=== PATIENT | male | born 1955 | race Caucasian/White ===

== ENCOUNTER 2021-04-09 11:54 | Inpatient (IN) | payer OTHER, SELFPAY ==
[2021-04-09] VITALS (12 sets, daily range): BP systolic 161–191; BP diastolic 79–88; PULSE 68–85; RESP 13–21; TEMP 36.6–37.5; O2SAT 95–99; BMI 34.9
--- NOTE | 2021-04-09 12:33 | DI.RAD.S_ITS ---
PROCEDURE: XR CHEST 1V INDICATIONS: suspected sepsis TECHNIQUE: One view of the chest was acquired. COMPARISON: [facility], CR, XR FOOT LT MIN 3V, 04/09/2021, 12:53. [facility], CR, XR CHEST 1 VIEW, 01/20/2021, 18:29. FINDINGS: Surgical changes and devices: None. Lungs and pleura: Lungs are clear. No pleural effusions or pneumothorax. Mediastinum: Mediastinal contours appear normal. Heart size is normal. Bones and chest wall: No suspicious bony lesions. Overlying soft tissues appear unremarkable. IMPRESSION: Portable chest within normal limits. No focal infiltrates are seen. If there is clinical concern for a developing pulmonary process, a short-term followup chest series (with PA and lateral views, performed in deep inspiration) is suggested for further evaluation. Dictated by: Giorgio Coy M.D. on 04/09/2021 at 12:21 Approved by: Giorgio Coy M.D. on 04/09/2021 at 12:22
--- NOTE | 2021-04-09 12:33 | DI.RAD.S_ITS ---
PROCEDURE: XR FOOT LT MIN 3V INDICATIONS: wound to left foot, progressing TECHNIQUE: 3 views of the foot were acquired. COMPARISON: None. FINDINGS: Bones: In this patient with this given history, scrutiny is given to lytic lesions or periosteal reaction. None can be seen. No fractures or dislocations. Generalized degenerative changes are seen, which are worst along the Lisfranc joint. Toe alignment abnormalities are seen. Soft tissues: Generalized soft tissue swelling is seen. No findings of soft tissue gas are detected by plain film. IMPRESSION: Soft tissue swelling, without tricia plain film findings of osteomyelitis. If there is strong suspicion for developing osteomyelitis, please consider a dedicated MRI without and with contrast for further evaluation (assuming that there is no contraindication to MRI). Dictated by: Giorgio Coy M.D. on 04/09/2021 at 12:20 Approved by: Giorgio Coy M.D. on 04/09/2021 at 12:21
[2021-04-09 12:42] LABS: Add Manual Diff / Slide Review NO; Basophils Absolute Auto 100 /uL (0-100); Eosinophils Absolute Auto 300 /uL (0-450); Eosinophils Percent Auto 3.2 % (2-4); Hematocrit 40.6 % (41-53); Hemoglobin 14.3 g/dL (13.5-17.5); Lymphocytes Absolute Auto 1400 /uL (1100-4500); Lymphocytes Percent Auto 13.8 % (25-40); Mean Corpuscular HGB Conc 35.3 % (30-36); Mean Corpuscular Volume 87.9 fL (80-100); Monocytes Absolute Auto 1000 /uL (0-900); Monocytes Percent Auto 9.8 % (3-14); Neutrophils Absolute Auto 7300 /uL (1500-7000); Neutrophils Percent Auto 72.2 % (50-75); Platelet Count 306 X10^3/uL (150-400); Red Blood Cell Count 4.62 X10^6/uL (4.5-5.9); Red Cell Distribution Width 13.2 % (11.6-14.8); White Blood Cell Count 10.1 X10^3/uL (4.5-11.0)
[2021-04-09 12:53] LABS: Lactate (Lactic Acid) 1.3 mmol/L (0.7-2.1)
[2021-04-09 12:54] LABS: Alanine Aminotransferase 27 IU/L (<50); Albumin 4.5 g/dL (3.5-5.0); Albumin Globulin Ratio 1.1 (1.0-2.8); Alkaline Phosphatase 63 U/L (38-126); Aspartate Aminotransferase 17 IU/L (17-59); BUN Creatinine Ratio 15.1 (6-22); Bilirubin Total 0.7 mg/dL (0.2-1.3); Blood Urea Nitrogen 13 mg/dL (9-20); Calcium 9.4 mg/dL (8.4-10.2); Carbon Dioxide 26 mmol/L (22-32); Chloride 104 mmol/L (98-107); Estimated Glomerular Filt Rate > 60.0 mL/min (>60); Glucose 96 mg/dL (80-110); HEMOLYSIS < 15 (0-50); Lipase 78 U/L (23-300); Potassium 4.4 mmol/L (3.4-5.1); Sodium 137 mmol/L (137-145); Total Protein 8.5 g/dL (6.3-8.2)
[2021-04-09 13:11] LABS: Procalcitonin 0.06 ng/mL (<0.5)
[2021-04-09 13:14] LABS: COVID19 -Nasal RAPID Negative (Negative)
--- NOTE | 2021-04-09 13:17 | ED_ITS ---
HPI - Wound/Laceration General Chief Complaint: Wound/Laceration Stated Complaint: Abcess in Lt Foot Time Seen by Provider: 04/09/21 12:12 Source: patient and family Mode of arrival: Wheelchair Limitations: no limitations History of Present Illness HPI narrative: This is a 65-year-old male comes emergency department with complaint of infection in his left foot. 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 Patient states about 2 weeks ago he stepped on a short object had a laceration to the bottom foot. He has neuropathy and does not have sensation bottom or side of his foot did realize that he had a cut. He developed redness and swelling over the medial side and dorsum foot. The laceration/puncture wound was noted over the ball of the foot. He was given a dose of IM antibiotics and started on Keflex orally which he has been taking for 6 days. He has had increasing redness as well as localized swelling and fluctuance over the medial side of the foot. He has not had fevers recently. He has not really had pain but does not normally have pain in his lower extremity. He has had normal movement. His family checked on his foot periodically and noted it has worsened and he was brought in for evaluation. He denies any chest pain or shortness of breath no nausea or vomiting. He has had some constipation but this is been chronic and ongoing and he has been off his stool softeners. He takes medication for hypertension. No known drug allerg ies. No known diabetes. Patient has had right hip surgery in the past but denies any other surgical history. Related Data Home Medications Medication Instructions Recorded Confirmed amlodipine 5 mg tablet 5 mg PO DAILY 04/09/21 04/09/21 atorvastatin 40 mg tablet 40 mg PO BEDTIME 04/09/21 04/09/21 cephalexin 500 mg capsule 500 mg PO TID 04/09/21 04/09/21 fluticasone 113 mcg-salmeterol 14 1 inh INHALATION BID 04/09/21 04/09/21 mcg/actuation breath activated powdr gabapentin 300 mg capsule 300 mg PO TID 04/09/21 04/09/21 methocarbamol 500 mg tablet 500 mg PO TID 04/09/21 04/09/21 metoprolol tartrate 50 mg tablet 50 mg PO BID 04/09/21 04/09/21 tamsulosin 0.4 mg capsule (Flomax) 0.8 mg PO BEDTIME 04/09/21 04/09/21 Allergies Allergy/AdvReac Type Severity Reaction Status Date / Time No Known Drug Allergies Allergy Verified 04/09/21 12:25 Review of Systems Review of Systems ROS Unobtainable: All systems reviewed & are unremarkable except as noted in HPI and below Patient History Social History household members: children Smoking Status: Never smoker alcohol intake: current Exam Narrative Exam Narrative: GENERAL: Alert and oriented x three, male in mild distress. HEENT: Head normocephalic, atraumatic, EOMI, pupils reactive, face symmetric, moist mucous membranes NECK: Supple, full range of motion CARDIOVASCULAR: Regular rate and rhythm without murmurs, rubs or gallops. RESPIRATORY: Breath sounds equal bilaterally, no wheezes rales or rhonchi. ABDOMEN: Soft, nontender. Normoactive bowel sounds all 4 quadrants. No guarding or rebound, rigidity, no mass EXTREMITIES: Normal range of motion, no clubbing. Patient has swelling and erythema an irregular pattern that is approximately 5 cm x 7 cm over the medial aspect and dorsum of the right foot. There is an area of fluctuance that is about 4 cm with several small punctate areas of fluctuance and white discolor ation on the periphery. Patient has edema. Localized to this area. He is nontender to touch but does not have any sensation to touch in the foot or sharp sensation. Patient has cap refill is less than 2 seconds. Dorsalis pedis present pulse. Patient has normal range of movement. Patient does have what appears to be a healed puncture laceration over the ball of the foot with some hyperpigmentation but no erythema, drainage or sign of foreign body present. NEUROLOGICAL: Cranial nerves II through XII grossly intact. Moving all extremities SKIN: Warm, dry, no petechiae, no rashes or lesions otherwise noted. Initial Vital Signs Initial Vital Signs: Vital Signs Temperature 98.1 F 04/09/21 12:00 Pulse Rate 71 04/09/21 12:00 Respiratory Rate 18 04/09/21 12:00 Blood Pressure 167/79 H 04/09/21 12:00 Pulse Oximetry 99 04/09/21 12:00 Procedures Abscess I/D I&D #1: Time of procedure: 13:50 Site: foot Side (if applicable): left Sedation/analgesia: none Technique: incised with #11 blade Amount of fluid expressed (mL): 12 Irrigation: Yes Packing used?: none Course Orders Ordered: ED Orders 04/09/21 12:10 COVID19 -Nasal swab/Pre-Proc Stat CRP [C-Reactive Protein Quant] Stat Complete Blood Count AUTO DIFF Stat Comprehensive Metabolic Panel Stat ESR [Erythrocyte Sedimentation Rate] Stat Lactate (Lactic Acid) Stat Lipase Stat Procalcitonin Stat 04/09/21 12:20 Blood Culture Stat 04/09/21 12:33 XR chest 1V Stat XR foot LT min 3V Stat 04/09/21 13:40 Wound Culture and Gram Stain Stat 04/09/21 14:22 MR foot LT wo/w con Stat Acetaminophen (Acetaminophen 325 Mg Tablet) 650 mg PO Q6HR PRN PRN Reason: Fever/Mild Pain (1-3) Amlodipine Besylate (Amlodipine 5 Mg Tablet) 5 mg PO DAILY BELEN Atorvastatin Calcium (Atorvastatin 20 Mg Tablet) 40 mg PO BEDTIME BELEN Cefazolin Sodium/Dextrose (Cefazolin 2 Gm/20 Ml Syringe) 2 gm IV Q8H [facility] Last Admin: 04/09/21 17:06 Dose: 2 gm Documented by: BLAS Enoxaparin Sodium (Enoxaparin 40 Mg/0.4 Ml Syringe) 40 mg SUBCUT DAILY BELEN Gabapentin (Gabapentin 300 Mg Capsule) 300 mg PO TID BELEN Methocarbamol (Methocarbamol 500 Mg Tablet) 500 mg PO TID [facility] Metoprolol Tartrate (Metoprolol Ir 50 Mg Tablet) 50 mg PO BID [facility] Naloxone HCl (Naloxone 0.4 Mg/Ml Vial) 0.2 mg IV Q2MIN PRN PRN Reason: Opiate Reversal Ondansetron HCl (Ondansetron 4 Mg/2 Ml Inj) 4 mg IV Q8HR PRN PRN Reason: Nausea And Vomiting Tamsulosin HCl (Tamsulosin 0.4 Mg Capsule) 0.8 mg PO BEDTIME [facility] Discontinued Medications Clindamycin Phosphate (Cleocin) 900 mg in 50 mls @ 50 mls/hr IV NOW ONE Stop: 04/09/21 14:27 Last Infusion: 04/09/21 14:35 Dose: 0 mls/hr Documented by: Admin: 04/09/21 13:43 Dose: 50 mls/hr Documented by: JADE Vital Signs Vital signs: Vital Signs - 8 hr 04/09/21 12:00 04/09/21 12:21 04/09/21 12:30 Temperature 98.1 F Pulse Rate 71 69 70 Respiratory Rate 18 14 Blood Pressure 167/79 H 166/84 H 172/83 H Pulse Oximetry 99 96 95 04/09/21 13:00 04/09/21 13:30 04/09/21 13:31 Temperature Pulse Rate 72 72 68 Respiratory Rate 14 19 21 Blood Pressure 175/85 H 191/86 H Pulse Oximetry 98 96 97 04/09/21 14:00 04/09/21 14:01 Temperature Pulse Rate 73 71 Respiratory Rate 18 18 Blood Pressure 169/85 H Pulse Oximetry 95 96 MDM - Wound/Laceration Lab Data Result diagrams: 04/09/21 12:10 04/09/21 12:10 Labs: Lab Results 04/09/21 04/09/21 04/09/21 Range/Units 12:10 12:10 12:10 WBC 10.1 (4.5-11.0) X10^3/uL RBC 4.62 (4.5-5.9) X10^6/uL Hgb 14.3 (13.5-17.5) g/dL Hct 40.6 L (41-53) % MCV 87.9 (80-100) fL MCH 31.0 (26-34) PG MCHC 35.3 (30-36) % RDW 13.2 (11.6-14.8) % Plt Count 306 (150-400) X10^3/uL Neut % (Auto) 72.2 (50-75) % Lymph % (Auto) 13.8 L (25-40) % [place] % (Auto) 9.8 (3-14) % Eos % (Auto) 3.2 (2-4) % Baso % (Auto) 1.0 (0-2) % Neut # (Auto) 7300 H (4707-8728) /uL Lymph # (Auto) 1400 (0801-2929) /uL [place]ary # (Auto) 1000 H (0-900) /uL Eos # (Auto) 300 (0-450) /uL Baso # (Auto) 100 (0-100) /uL ESR (0-15) MM/HR Sodium 137 (137-145) mmol/L Potassium 4.4 (3.4-5.1) mmol/L Chloride 104 (98-107) mmol/L Carbon Dioxide 26 (22-32) mmol/L BUN 13 (9-20) mg/dL Creatinine 0.86 (0.66-1.25) mg/dL Estimated GFR > 60.0 (>60) mL/min BUN/Creatinine Ratio 15.1 (6-22) Glucose 96 (80-110) mg/dL Lactate 1.3 (0.7-2.1) mmol/L Calcium 9.4 (8.4-10.2) mg/dL Total Bilirubin 0.7 (0.2-1.3) mg/dL AST 17 (17-59) IU/L ALT 27 (<50) IU/L Alkaline Phosphatase 63 (38-126) U/L C-Reactive Protein (<1.0) mg/dL Total Protein 8.5 H (6.3-8.2) g/dL Albumin 4.5 (3.5-5.0) g/dL Globulin 4.0 (1.7-4.1) g/dL Albumin/Globulin Ratio 1.1 (1.0-2.8) Lipase 78 (23-300) U/L Procalcitonin 0.06 (<0.5) ng/mL SARS-CoV-2 (PCR) (Negative) 04/09/21 04/09/21 04/09/21 Range/Units 12:10 12:10 12:10 WBC (4.5-11.0) X10^3/uL RBC (4.5-5.9) X10^6/uL Hgb (13.5-17.5) g/dL Hct (41-53) % MCV (80-100) fL MCH (26-34) PG MCHC (30-36) % RDW (11.6-14.8) % Plt Count (150-400) X10^3/uL Neut % (Auto) (50-75) % Lymph % (Auto) (25-40) % [place]ary % (Auto) (3-14) % Eos % (Auto) (2-4) % Baso % (Auto) (0-2) % Neut # (Auto) (7192-1124) /uL Lymph # (Auto) (7499-6907) /uL Geary # (Auto) (0-900) /uL Eos # (Auto) (0-450) /uL Baso # (Auto) (0-100) /uL ESR 38 H (0-15) MM/HR Sodium (137-145) mmol/L Potassium (3.4-5.1) mmol/L Chloride (98-107) mmol/L Carbon Dioxide (22-32) mmol/L BUN (9-20) mg/dL Creatinine (0.66-1.25) mg/dL Estimated GFR (>60) mL/min BUN/Creatinine Ratio (6-22) Glucose (80-110) mg/dL Lactate (0.7-2.1) mmol/L Calcium (8.4-10.2) mg/dL Total Bilirubin (0.2-1.3) mg/dL AST (17-59) IU/L ALT (<50) IU/L Alkaline Phosphatase (38-126) U/L C-Reactive Protein 3.7 H (<1.0) mg/dL Total Protein (6.3-8.2) g/dL Albumin (3.5-5.0) g/dL Globulin (1.7-4.1) g/dL Albumin/Globulin Ratio (1.0-2.8) Lipase (23-300) U/L Procalcitonin (<0.5) ng/mL SARS-CoV-2 (PCR) Negative (Negative) Imaging Data Extremity x-ray #1: Radiologist's Impression: [address] [address] XRay Report Signed Patient: Preet Garrison MR#: [id number] : 1955 Acct:[id number] Age/Sex: 65 / M Date of Service: 04/09/21 Loc: ED Accession Number: [id number] ?? Procedure: XR foot LT min 3V Ordering Provider: Abebe Varma P.A-C PROCEDURE:? XR FOOT LT MIN 3V ? INDICATIONS:? wound to left foot, progressing ? TECHNIQUE:? 3 views of the foot were acquired.? ? COMPARISON:? None. ? FINDINGS:? ? Bones:? In this patient with this given history, scrutiny is given to lytic lesions or periosteal reaction.? None can be seen. ? No fractures or dislocations.? Generalized degenerative changes are seen, which are worst along the Lisfranc joint.? Toe alignment abnormalities are seen.? ? Soft tissues:? Generalized soft tissue swelling is seen.? No findings of soft tissue gas are detected by plain film. ? ? IMPRESSION:? Soft tissue swelling, without tricia plain film findings of osteomyelitis. ? If there is strong suspicion for developing osteomyelitis, please consider a dedicated MRI without and with contrast for further evaluation (assuming that there is no contraindication to MRI).? ? ? Dictated by: Giorgio Coy M.D. on 04/09/2021 at 12:20 ? ? Approved by: Giorgio Coy M.D. on 04/09/2021 at 12:21 MDM Narrative Medical decision making narrative: This is a 65-year-old male who comes in with complaint of infection of his right lower extremity secondary to an injury patient has chronic neuropathy secondary to what is described as a viral transverse myelitis did not appreciate that he had had a laceration. He has had increasing redness swelling and now fluctuance developed after being on antibiotics for 6 days including a dose of IM antibiotics initially on Saturday the April 03. Patient appears to have failed outpatient antibiotics he does not appear to be septic. He had I and D here in the department with purulent fluid drained. Given a dose of IV antibiotics, initial screening x-ray does not show obvious osteomyelitis but discussed with hospitalist, Dr. Oneil for observation . Plan to obtain MRI of the foot and Dr. Oneil will follow up with this to decide if orthopedic consultation is necessary per Discharge Plan Departure Patient Disposition: Admitted As Inpatient Clinical Impression: Abscess or cellulitis of foot Admit Date/Time: 04/09/21 14:23 Admit Provider: Willi Oneil
[2021-04-09] MEDS: CLINDAMYCIN 900 MG/50 ML PIGGYBACK 50 MG IV (13:43)
[2021-04-09 13:53] LABS: C-Reactive Protein Quant 3.7 mg/dL (<1.0)
[2021-04-09 14:16] LABS: Erythrocyte Sedimentation Rate 38 MM/HR (0-15)
--- NOTE | 2021-04-09 14:22 | DI.MRI.S_ITS ---
PROCEDURE: MR FOOT LT WO/W CON INDICATIONS: osteomyelitis/abscess TECHNIQUE: Noncontrast coronal T1 spin echo and STIR, sagittal T1 spin echo with fat saturation and STIR, axial T1 spin echo and T2 fast spin echo with fat saturation. After the administration of contrast, axial/sagittal/coronal T1 spin echo with fat saturation through the left forefoot. COMPARISON: [facility], CR, XR FOOT LT MIN 3V, 04/09/2021, 12:53. FINDINGS: Image quality: Excellent. Bones: Within the proximal shaft of the 5th metatarsal, there is abnormal signal seen with increased STIR signal with increased enhancement. There is mild low signal seen on T1 weighted imaging, yet not to the extent of the STIR abnormality. The overlying cortex appears normal and intact. The visualized bone marrow otherwise demonstrates normal signal on all sequences. The overlying cortex appears intact. No abnormal intraosseous enhancement. Toe alignment abnormalities are seen. Soft tissues: Generalized distal soft tissue swelling is seen involving the distal forefoot, with edema and generalized enhancement. No focal fluid collection is seen to suggest a drainable abscess. IMPRESSION: Focal signal abnormality with enhancement can be seen involving the proximal shaft of the 5th metacarpal. While osteomyelitis is possible, the overlying cortex appears intact and this is felt more likely to be related to trauma or neuropathic change. Furthermore, the soft tissue swelling is seen more distal to this site. Please correlate with patient history and physical examination findings. Generalized soft tissue swelling is seen, which is attributed to cellulitis. No drainable abscess is seen. Dictated by: Giorgio Coy M.D. on 04/09/2021 at 15:03 Transcribed by: WENDY on 04/09/2021 at 15:11 Approved by: Giorgio Coy M.D. on 04/09/2021 at 15:18
--- NOTE | 2021-04-09 14:54 | PC.NURSE ---
Wound I&D by provider, culture sent.
--- NOTE | 2021-04-09 16:28 | P.HP_ITS ---
History of Present Illness History of Present Illness Date Patient Seen: 04/09/21 Time Patient Seen: 16:00 Chief complaint: Abcess in Lt Foot Narrative: Patient is a 65 yo male with history of hypertension, hyperlipidemia, asthma, BPH, transverse myelitis with diminished sensation in distal lower extremities presents to the emergency department with worsening appearance of left foot. Patient states that 6 days ago he got started on cephalexin for cellulitis of the left foot. Around that time they noticed a small cut over a callus on the plantar surface of the distal 1st metatarsal. However the cellulitis was on the dorsum of the foot and did not appear connected to this laceration. Patient had chills and sweats for a couple of days which resolved on antibiotic and he also noticed improvement on the oral antibiotic. However in the last 2 days he not iced worsening swelling and redness on dorsum of the foot. In the ED he was noted to have sizable abscess in that area which was drained. Labs were unremarkable. Patient History Family & Social History Social History: household members children Prior Living Arrangements House Safety & Behavioral: Feels Safe in Current Yes Environment Been Physically Hurt or No Threatened By a Person Suicidal Ideation Description None Suicide Plan Description No Plan Tobacco & Substance use: Smoking Status Never smoker alcohol intake current alcohol intake frequency holiday/special occasion Substance Use Type marijuana Meds Home Medications and Allergies Home Medications Medication Instructions Recorded Confirmed Type amlodipine 5 mg tablet 5 mg PO DAILY 04/09/21 04/09/21 History atorvastatin 40 mg tablet 40 mg PO BEDTIME 04/09/21 04/09/21 History cephalexin 500 mg capsule 500 mg PO TID 04/09/21 04/09/21 History fluticasone 113 mcg-salmeterol 14 1 inh INHALATION BID 04/09/21 04/09/21 History mcg/actuation breath activated powdr gabapentin 300 mg capsule 300 mg PO TID 04/09/21 04/09/21 History methocarbamol 500 mg tablet 500 mg PO TID 04/09/21 04/09/21 History metoprolol tartrate 50 mg tablet 50 mg PO BID 04/09/21 04/09/21 History tamsulosin 0.4 mg capsule (Flomax) 0.8 mg PO BEDTIME 04/09/21 04/09/21 History Allergies Allergy/AdvReac Type Severity Reaction Status Date / Time No Known Drug Allergies Allergy Verified 04/09/21 12:25 Review of Systems Review of Systems Narrative: Complete 10 point ROS negative other than stated above. Exam Vital Signs (past 8 hours): - 04/09/21 12:00 04/09/21 12:21 04/09/21 12:30 Temperature 98.1 F Pulse Rate 71 69 70 Respiratory Rate 18 14 Blood Pressure 167/79 H 166/84 H 172/83 H Pulse Oximetry 99 96 95 04/09/21 13:00 04/09/21 13:30 04/09/21 13:31 Temperature Pulse Rate 72 72 68 Respiratory Rate 14 19 21 Blood Pressure 175/85 H 191/86 H Pulse Oximetry 98 96 97 04/09/21 14:00 04/09/21 14:01 04/09/21 14:30 Temperature Pulse Rate 73 71 73 Respiratory Rate 18 18 13 Blood Pressure 169/85 H 162/83 H Pulse Oximetry 95 96 97 04/09/21 15:57 Temperature 97.9 F Pulse Rate 80 Respiratory Rate 16 Blood Pressure 161/83 H Pulse Oximetry 98 Oxygen Delivery Method Room Air Narrative Exam Narrative: General: Alert very pleasant male in no acute distress HEENT: Pupils equal and reactive Neck: No lymphadenopathy Lungs: Clear to auscultation Heart: Regular rhythm and without murmur Abdomen: Nontender, no HSM Extremities: There is extensive macular erythema on the mid dorsum to medial left foot extending to medial ankle and to distal 1st and 2nd metatarsals. There is an open oozing small surgical incision on dorsum. There is a large callus on the metatarsal head with scarring from may be an old laceration but no fluctuance or edema in this area. He has normal active flexion and extension of the toes. He has diminished sensation on the foot. Neurological: Fully oriented, speech normal, affect normal Objective Labs Result Diagrams: 04/09/21 12:10 04/09/21 12:10 Labs: Laboratory Results - last 24 hr 04/09/21 04/09/21 04/09/21 12:10 12:10 12:10 WBC 10.1 RBC 4.62 Hgb 14.3 Hct 40.6 L MCV 87.9 MCH 31.0 MCHC 35.3 RDW 13.2 Plt Count 306 Neut % (Auto) 72.2 Lymph % (Auto) 13.8 L [place] % (Auto) 9.8 Eos % (Auto) 3.2 Baso % (Auto) 1.0 Neut # (Auto) 7300 H Lymph # (Auto) 1400 [place] # (Auto) 1000 H Eos # (Auto) 300 Baso # (Auto) 100 ESR Sodium 137 Potassium 4.4 Chloride 104 Carbon Dioxide 26 BUN 13 Creatinine 0.86 Estimated GFR > 60.0 BUN/Creatinine Ratio 15.1 Glucose 96 Lactate 1.3 Calcium 9.4 Total Bilirubin 0.7 AST 17 ALT 27 Alkaline Phosphatase 63 C-Reactive Protein Total Protein 8.5 H Albumin 4.5 Globulin 4.0 Albumin/Globulin Ratio 1.1 Lipase 78 Procalcitonin 0.06 SARS-CoV-2 (PCR) 04/09/21 04/09/21 04/09/21 12:10 12:10 12:10 WBC RBC Hgb Hct MCV MCH MCHC RDW Plt Count Neut % (Auto) Lymph % (Auto) [place] % (Auto) Eos % (Auto) Baso % (Auto) Neut # (Auto) Lymph # (Auto) [place] # (Auto) Eos # (Auto) Baso # (Auto) ESR 38 H Sodium Potassium Chloride Carbon Dioxide BUN Creatinine Estimated GFR BUN/Creatinine Ratio Glucose Lactate Calcium Total Bilirubin AST ALT Alkaline Phosphatase C-Reactive Protein 3.7 H Total Protein Albumin Globulin Albumin/Globulin Ratio Lipase Procalcitonin SARS-CoV-2 (PCR) Negative Assessment & Plan Assessment & Plan narrative: 1. Left foot cellulitis/abscess -status post incision and drainage in the ED -MRI: no deep tissue fluid collections, there is focal signal abnormality in the 5th metatarsal but overlying cortex appears intact and this is felt more likely due to trauma or neuropathic change -follow-up on wound culture and blood cultures -Ancef 2 g IV q.8 hours -incision was slightly extended and wound packed with 1/4 inch iodoform to allow adequate drainage 2. Hypertension, chronic -continue patient's amlodipine and metoprolol 3. Hyperlipidemia -continue patient's atorvastatin 4. BPH -continue patient tamsulosin Time Spent With Patient Critical Care time: I spent a total of [] minutes of critical care time on this patient's care today; this time is exclusive of procedural time.
[2021-04-09] MEDS: CEFAZOLIN 2 GM/20 ML SYRINGE IV (17:06)
[2021-04-09] MEDS: GABAPENTIN 300 MG CAPSULE PO (18:36)
[2021-04-09] MEDS: ATORVASTATIN 20 MG TABLET 40 MG PO (20:34)
[2021-04-09] MEDS: GABAPENTIN 300 MG CAPSULE 1200 MG PO (20:35)
[2021-04-09] MEDS: METOPROLOL IR 50 MG TABLET PO (20:36)
[2021-04-09] MEDS: methocarbamoL 500 MG TABLET PO (20:36)
[2021-04-09] MEDS: TAMSULOSIN 0.4 MG CAPSULE 0.8 MG PO (20:36)
[2021-04-10] VITALS (7 sets, daily range): BP systolic 134–161; BP diastolic 60–92; PULSE 75–83; RESP 16–18; TEMP 36.2–37.2; O2SAT 94–98
[2021-04-10] MEDS: CEFAZOLIN 2 GM/20 ML SYRINGE IV ×2 (00:46→08:35)
--- NOTE | 2021-04-10 03:19 | PC.NURSE ---
Dressing to left foot came off. Wound cleaned with sterol water and repacked with iodoform. Pt denies any pain or feeling during dressing change.
[2021-04-10 06:32] LABS: Add Manual Diff / Slide Review NO; Basophils Absolute Auto 100 /uL (0-100); Basophils Percent Auto 0.9 % (0-2); Eosinophils Absolute Auto 300 /uL (0-450); Eosinophils Percent Auto 4.1 % (2-4); Hematocrit 37.3 % (41-53); Lymphocytes Absolute Auto 1600 /uL (1100-4500); Lymphocytes Percent Auto 20.2 % (25-40); Mean Corpuscular HGB Conc 34.9 % (30-36); Mean Corpuscular Hemoglobin 30.7 PG (26-34); Mean Corpuscular Volume 87.9 fL (80-100); Monocytes Absolute Auto 900 /uL (0-900); Monocytes Percent Auto 10.6 % (3-14); Neutrophils Absolute Auto 5200 /uL (1500-7000); Neutrophils Percent Auto 64.2 % (50-75); Platelet Count 273 X10^3/uL (150-400); Red Blood Cell Count 4.24 X10^6/uL (4.5-5.9); Red Cell Distribution Width 12.8 % (11.6-14.8)
[2021-04-10] MEDS: ENOXAPARIN 40 MG/0.4 ML SYRINGE SUBCUT (08:37)
[2021-04-10] MEDS: GABAPENTIN 300 MG CAPSULE 1200 MG PO ×3 (08:37→22:14)
[2021-04-10] MEDS: AMLODIPINE 5 MG TABLET PO (08:38)
[2021-04-10] MEDS: METOPROLOL IR 50 MG TABLET PO ×2 (08:38→22:14)
[2021-04-10] MEDS: methocarbamoL 500 MG TABLET PO ×3 (08:47→22:13)
[2021-04-10] MEDS: VANCOMYCIN 1,500 MG/300 ML PIGGYBACK 200 MG IV ×2 (10:24→22:15)
--- NOTE | 2021-04-10 11:35 | PM.PN.1 ---
Subjective Subjective Date Patient Seen: 04/10/21 Interval history: 65 yo male with history of hypertension, hyperlipidemia, asthma, BPH, alcohol abuse, transverse myelitis with diminished sensation in distal lower extremities?admitted due to left foot abscess and cellulitis. He is status post I and D. fluid Gram stain positive for wbc's, no bacteria and culture negative so far. Daughter endorses patient with significant alcohol intake 3 beers daily. Currently without signs of withdrawal. Exam Vital Signs (past 8 hours): - 04/10/21 04:20 04/10/21 05:19 Temperature 97.2 F L Pulse Rate 75 75 Respiratory Rate 16 16 Blood Pressure 134/60 Pulse Oximetry 98 98 Oxygen Delivery Method Room Air Oxygen Flow Rate 0 Narrative Exam Narrative: General: Alert and pleasant NAD Extremities: The erythema male on dorsum of left foot is about the same or slightly worse. There is open I and D wound packed with iodoform. No significant drainage noted. Able to actively flex and extend toes. Objective Labs Result Diagrams: 04/10/21 06:12 04/09/21 12:10 Labs: Laboratory Results - last 24 hr 04/09/21 04/09/21 04/09/21 12:10 12:10 12:10 WBC 10.1 RBC 4.62 Hgb 14.3 Hct 40.6 L MCV 87.9 MCH 31.0 MCHC 35.3 RDW 13.2 Plt Count 306 Neut % (Auto) 72.2 Lymph % (Auto) 13.8 L [place] % (Auto) 9.8 Eos % (Auto) 3.2 Baso % (Auto) 1.0 Neut # (Auto) 7300 H Lymph # (Auto) 1400 [place] # (Auto) 1000 H Eos # (Auto) 300 Baso # (Auto) 100 ESR Sodium 137 Potassium 4.4 Chloride 104 Carbon Dioxide 26 BUN 13 Creatinine 0.86 Estimated GFR > 60.0 BUN/Creatinine Ratio 15.1 Glucose 96 Lactate 1.3 Calcium 9.4 Total Bilirubin 0.7 AST 17 ALT 27 Alkaline Phosphatase 63 C-Reactive Protein Total Protein 8.5 H Albumin 4.5 Globulin 4.0 Albumin/Globulin Ratio 1.1 Lipase 78 Procalcitonin 0.06 SARS-CoV-2 (PCR) 04/09/21 04/09/21 04/09/21 12:10 12:10 12:10 WBC RBC Hgb Hct MCV MCH MCHC RDW Plt Count Neut % (Auto) Lymph % (Auto) [place] % (Auto) Eos % (Auto) Baso % (Auto) Neut # (Auto) Lymph # (Auto) [place] # (Auto) Eos # (Auto) Baso # (Auto) ESR 38 H Sodium Potassium Chloride Carbon Dioxide BUN Creatinine Estimated GFR BUN/Creatinine Ratio Glucose Lactate Calcium Total Bilirubin AST ALT Alkaline Phosphatase C-Reactive Protein 3.7 H Total Protein Albumin Globulin Albumin/Globulin Ratio Lipase Procalcitonin SARS-CoV-2 (PCR) Negative 04/10/21 06:12 WBC 8.0 RBC 4.24 L Hgb 13.0 L Hct 37.3 L MCV 87.9 MCH 30.7 MCHC 34.9 RDW 12.8 Plt Count 273 Neut % (Auto) 64.2 Lymph % (Auto) 20.2 L [place] % (Auto) 10.6 Eos % (Auto) 4.1 H Baso % (Auto) 0.9 Neut # (Auto) 5200 Lymph # (Auto) 1600 [place] # (Auto) 900 Eos # (Auto) 300 Baso # (Auto) 100 ESR Sodium Potassium Chloride Carbon Dioxide BUN Creatinine Estimated GFR BUN/Creatinine Ratio Glucose Lactate Calcium Total Bilirubin AST ALT Alkaline Phosphatase C-Reactive Protein Total Protein Albumin Globulin Albumin/Globulin Ratio Lipase Procalcitonin SARS-CoV-2 (PCR) [facility] Social History household members: children Smoking Status: Never smoker alcohol intake: current Assessment & Plan Assessment & Plan narrative: 1.? Left foot cellulitis/abscess -status post incision and drainage in the ED -MRI:? no deep tissue fluid collections, there is focal signal abnormality in the 5th metatarsal but overlying cortex appears intact and this is felt more likely due to trauma or neuropathic change -follow-up on wound culture and blood cultures -04/10 vancomycin IV to treat possible MRSA -04/10. Ancef 2 g IV q.8 hours -incision packed with 1/4 inch iodoform to allow adequate drainage 2. Hypertension, chronic -continue patient's amlodipine and metoprolol 3.? Hyperlipidemia -continue patient's atorvastatin 4. BPH -continue patient tamsulosin 5. Chronic pain -continue gabapentin and methocarbamol Time Spent With Patient Critical Care time: I spent a total of [] minutes of critical care time on this patient's care today; this time is exclusive of procedural time.
--- NOTE | 2021-04-10 12:14 | CM.DANOTE ---
DCP: Case received, EMR reviewed and met with patient. Daughter, Anitha Fall, was at bedside, she works here at the hospital in diagnostics. Introduced self and role. Was able to obtain information regarding patient's baseline activity at home prior to hospitalization, as well as patient's current living situation. DCP assessment completed with information currently available. Patient is a 65 year old male who admitted yesterday afternoon to the care of the hospitalist team. PCP: Dr. Waters. Payer: confirmed: [employer]. Patient came to the hospital via private vehicle secondary to having increased redness and drainage from his left foot. Patient holds current diagnosis of abscess/left foot cellulitis. He is currently getting IV ABO. Met with patient and daughter, Anitha, in the room. He resides in [facility] with two daughters, Anitha and Gabbi Mcelroy. He is independent at baseline, is retired, does have a cane for home use to to his chronic foot problems. He has history of neuropathy. Mentioned the possiblilty if patient does need longer term antibiotics, if family can assist if needed. Anitha indicated, it would be my sister, Gabbi, if he needs that, since I'm not the medical person when it comes to that. Discussed patient during team rounds. Dr. Oneil indicated, he should be able to go home on oral antibiotics at discharge versus longer term IV ABO. P: DCP to continue to follow. Plan is home when he is medically stable. Lindy Merlos RN/[employer]illi[employer] Par[employer] Manager Discharge Planning/Care Management Discharge Assessment Start: 04/10/21 12:13 Freq: Status: Active Protocol: Document 04/10/21 12:13 (Rec: 04/10/21 12:14 [id number]) Discharge Planning Assessment Assigned Deck Steward Lindy Merlos RN/[employer]illi[employer] Par[employer] Manager Advance Directives? No History Provided By Patient,Medical Record Prior Living Arrangements House Household Members children Type of transporation used prior to Drives own vehicle admit Independent with ADL's Yes Is patient alert and oriented? Yes DME Already Rented / Owned Cane Barriers to Discharge No Discharge Plan Home Transportation Arrangement Family Referrals Initiated None needed Whiteboard Updated in Patient Room with Yes name and ext. # of Deck Steward Review Status In Process Next Review Type Continued Stay Review Discharge Planning/Care Management Discharge Assessment Start: 04/10/21 12:13 Freq: Status: Active Protocol: Document 04/10/21 12:13 (Rec: 04/10/21 12:14 [id number]) Discharge Planning Assessment Assigned Deck Steward Lindy Merlos RN/[employer]illi[employer] Par[employer] Manager Advance Directives? No History Provided By Patient,Medical Record Prior Living Arrangements House Household Members children Type of transporation used prior to Drives own vehicle admit Independent with ADL's Yes Is patient alert and oriented? Yes DME Already Rented / Owned Cane Barriers to Discharge No Discharge Plan Home Transportation Arrangement Family Referrals Initiated None needed Whiteboard Updated in Patient Room with Yes name and ext. # of Deck Steward Review Status In Process Next Review Type Continued Stay Review
[2021-04-10] MEDS: TAMSULOSIN 0.4 MG CAPSULE 0.8 MG PO (22:13)
[2021-04-10] MEDS: ATORVASTATIN 20 MG TABLET 40 MG PO (22:14)
[2021-04-10] MEDS: SODIUM CHLORIDE 0.9% FLUSH 10 ML IV (22:15)
[2021-04-11] VITALS (7 sets, daily range): BP systolic 115–141; BP diastolic 66–80; PULSE 72–80; RESP 16–18; TEMP 36.9–37.3; O2SAT 93–98
[2021-04-11] MEDS: DOCUSATE 100 MG CAPSULE 200 MG PO ×2 (00:02→09:35)
[2021-04-11 05:48] LABS: BUN Creatinine Ratio 18.6 (6-22); Blood Urea Nitrogen 16 mg/dL (9-20); Calcium 9.4 mg/dL (8.4-10.2); Carbon Dioxide 26 mmol/L (22-32); Chloride 104 mmol/L (98-107); Estimated Glomerular Filt Rate > 60.0 mL/min (>60); Glucose 109 mg/dL (80-110); HEMOLYSIS < 15 (0-50); Potassium 4.5 mmol/L (3.4-5.1); Sodium 137 mmol/L (137-145)
[2021-04-11] MEDS: GABAPENTIN 300 MG CAPSULE 1200 MG PO ×2 (09:33→15:54)
[2021-04-11] MEDS: methocarbamoL 500 MG TABLET PO ×2 (09:34→15:54)
[2021-04-11] MEDS: AMLODIPINE 5 MG TABLET PO (09:34)
[2021-04-11] MEDS: METOPROLOL IR 50 MG TABLET PO (09:34)
[2021-04-11] MEDS: ENOXAPARIN 40 MG/0.4 ML SYRINGE SUBCUT (09:35)
[2021-04-11] MEDS: VANCOMYCIN 1,500 MG/300 ML PIGGYBACK 200 MG IV (09:36)
[2021-04-11] MEDS: SODIUM CHLORIDE 0.9% FLUSH 10 ML IV (09:36)
--- NOTE | 2021-04-11 14:54 | P.DS_ITS ---
History of Present Illness History of Present Illness Chief complaint: Abcess in Lt Foot Narrative: Patient is a 65 yo male with history of hypertension, hyperlipidemia, asthma, BPH, transverse myelitis with diminished sensation in distal lower extremities presents to the emergency department with worsening appearance of left foot. Patient states that 6 days ago he got started on cephalexin for cellulitis of the left foot. Around that time they noticed a small cut over a callus on the plantar surface of the distal 1st metatarsal. However the cellulitis was on the dorsum of the foot and did not appear connected to this laceration. Patient had chills and sweats for a couple of days which resolved on antibiotic and he also noticed improvement on the oral antibiotic. However in the last 2 days he noti itzel worsening swelling and redness on dorsum of the foot. In the ED he was noted to have sizable abscess in that area which was drained. Labs were unremarkable. Discharge Providers Provider Date of admission: 04/09/21 14:23 Discharge Date: 04/11/21 Primary care physician: Latha Waters DO Discharge provider: Willi Oneil MD Summary Hospital Course Discharge Diagnosis: 1. Left foot abscess cellulitis Hospital Course: As noted patient had incision and drainage in the ED. foot MRI did not show any deep tissue fluid collections. He was initially on cefazolin without clinical response in foot appearance and was switched to vancomycin with considerable improvement after a day on vancomycin. His wound culture did not grow any bacteria. He is being discharged on Bactrim to treat possible community acquired MRSA. The incision and drainage wound will heal by secondary intention. Status at Discharge Cognitive/behavioral status at discharge: oriented Functional status at discharge: independent ambulation Overall status at discharge: patient is progressing back to baseline Time Spent with Patient Time spent: Less than 30 minutes Exam Vital Signs (past 8 hours): - 04/11/21 08:30 04/11/21 09:30 04/11/21 12:00 Temperature 99.2 F 98.4 F Pulse Rate 75 80 Respiratory Rate 16 16 Blood Pressure 131/72 141/80 H Pulse Oximetry 93 93 95 Oxygen Delivery Method Room Air Oxygen Flow Rate 0 Narrative Exam Narrative: General: Alert NAD Extremities: Left foot appearance much better with decrease in erythema and edema. There is open incision and drainage wound on the medial dorsum of foot. Objective Labs Result Diagrams: 04/10/21 06:12 04/11/21 05:05 Labs: Laboratory Results - last 24 hr 04/11/21 05:05 Sodium 137 Potassium 4.5 Chloride 104 Carbon Dioxide 26 BUN 16 Creatinine 0.86 Estimated GFR > 60.0 BUN/Creatinine Ratio 18.6 Glucose 109 Calcium 9.4 PFSH Social History household members: children Smoking Status: Never smoker alcohol intake: current Discharge Plan Discharge Plan Patient Disposition: Home Provider Discharge Comment: You were treated for foot abscess and cellulitis. Take new antibiotic as prescribed. Keep wound clean and dry until fully healed. Discharge orders & Medications Prescriptions: New sulfamethoxazole-trimethoprim [Bactrim DS] 800-160 mg tablet 1 tab PO BID Qty: 14 0RF Continued atorvastatin 40 mg tablet 40 mg PO BEDTIME 0RF Label Comments: Take 1 tablet by mouth once a day for cholesterol control methocarbamol 500 mg tablet 500 mg PO TID 0RF Label Comments: Take 1-2 tablet by mouth four times a day as needed for pain or muscle spasm amlodipine 5 mg tablet 5 mg PO DAILY 0RF tamsulosin [Flomax] 0.4 mg capsule 0.8 mg PO BEDTIME 0RF Label Comments: Take 2 capsule by mouth at bedtime to improve voiding metoprolol tartrate 50 mg tablet 50 mg PO BID 0RF fluticasone propion-salmeterol 113-14 mcg/actuation aerosol powdr breath activ ated 1 inh INHALATION BID 0RF gabapentin 600 mg tablet 1,200 mg PO TID 0RF Discontinued cephalexin 500 mg capsule 500 mg PO TID 0RF Label Comments: Take 1 capsule by mouth three times a day Follow up/Referrals: Latha Waters DO [Primary Care Provider] - Diet/Activity/Treatments Diet: Regular Visit Report/Discharge Packet Instructions: DI for Cellulitis -- Adult Discharge Data Primary Care Provider: Latha Waters
--- NOTE | 2021-04-11 17:19 | PC.NURSE ---
Addendum entered by Eliel Flores R.N. 04/11/21 17:40: Escorted out with all belongings to home with his daughter. Original Note: Discharge instructions reviewed with patient, he states understanding and has no further questions or concerns at this time. IV dc'd intact. Dressing was removed this morning by MD, wound cleansed with saline patted dry and allevyn gentle border dressing applied. Patient instructed to follow up with his PCP, instructed to notify MD for worsening symptoms or concerns.
== END 2021-04-11 17:40 | disposition home or self-care (01) | DRG 603 ==
LOC: ED 14:09 → AC 14:23
PROVIDERS: Physician Assistant; Admitting Provider Internal Medicine; Emergency Provider Emergency Medicine; PCP Family Medicine; Referring Provider Emergency Medicine; Visit Provider Internal Medicine
DX: L03.116 Cellulitis of left lower limb (principal); G37.3 Acute transverse myelitis in demyelinating disease of central nervous system; A49.02 Methicillin resistant Staphylococcus aureus infection, unspecified site; I10 Essential (primary) hypertension; E78.5 Hyperlipidemia, unspecified; N40.0 Benign prostatic hyperplasia without lower urinary tract symptoms; G89.29 Other chronic pain; Z20.822 Contact with and (suspected) exposure to COVID-19
CPT/HCPCS: 10060; 36415; 71045; 73630; 73720; 80048; 80053; 83605; 83690; 84145; 85025; 85651; 86140; 87040; 87070; 87205; 87635; 94760; 96365; 99284; C9803; J0690; J1650

== ENCOUNTER 2021-04-13 20:11 | Emergency (ER) | payer OTHER, SELFPAY ==
[2021-04-09 16:07] VITALS: BMI 34.9
[2021-04-13 20:19] VITALS: BP 168/82; PULSE 89; RESP 18; TEMP 37.9; O2SAT 96; BMI 34.4
--- NOTE | 2021-04-13 20:21 | ED_ITS ---
HPI - Recheck/Abnormal Lab/Rx General Chief Complaint: Recheck/Abnormal Lab/Rx Stated Complaint: critical labs Time Seen by Provider: 04/13/21 20:12 Source: patient Mode of arrival: Wheelchair Limitations: no limitations History of Present Illness HPI narrative: Patient is a 65-year-old male. Recently admitted to this facility for an abscess and concern for osteomyelitis of his left foot. Is placed on antibioti cs. Was subsequently discharged home. Had an MRI which did not show any signs of osteomyelitis. Had a follow-up with his primary doctor today. Noticed that over the past 24 hours he has had swelling and discomfort in his right lower extremity which is different from where he had the infection that subsequently and did him being admitted to the hospital. He denies chest pain. No shortness of breath. No abdominal pain. Feels that the left lower extremity infection is much better and is tolerating the antibiotics without difficulty. He had labs performed by his primary doctor. They are unavailable for my review but he was told that his D-dimer was elevated that he needs to come to the emergency department for further evaluation. Related Data Home Medications Medication Instructions Recorded Confirmed amlodipine 5 mg tablet 5 mg PO DAILY 04/09/21 04/09/21 atorvastatin 40 mg tablet 40 mg PO BEDTIME 04/09/21 04/09/21 fluticasone 113 mcg-salmeterol 14 1 inh INHALATION BID 04/09/21 04/09/21 mcg/actuation breath activated powdr gabapentin 600 mg tablet 1,200 mg PO TID 04/09/21 04/09/21 methocarbamol 500 mg tablet 500 mg PO TID 04/09/21 04/09/21 metoprolol tartrate 50 mg tablet 50 mg PO BID 04/09/21 04/09/21 tamsulosin 0.4 mg capsule (Flomax) 0.8 mg PO BEDTIME 04/09/21 04/09/21 Previous Rx's Medication Instructions Recorded sulfamethoxazole 800 1 tab PO BID #14 tab 04/11/21 mg-trimethoprim 160 mg tablet (Bactrim DS) Allergies Allergy/AdvReac Type Severity Reaction Status Date / Time No Known Drug Allergies Allergy Verified 04/13/21 20:20 Review of Systems Constitutional Constitutional: Denies fever(s) Cardiovascular Cardiovascular: Reports as per HPI and Reports system reviewed and no additional complaints, except as documented Respiratory Respiratory: Reports as per HPI and Reports system reviewed and no additional complaints, except as documented Musculoskeletal Musculoskeletal: Reports system reviewed and no additional complaints, except as documented and Reports as per HPI Integumentary/Breasts Skin/Breast: Reports system reviewed and no additional complaints, except as documented and Reports as per HPI Neurologic Comments: No change in neurologic status Hematologic/Lymphatic On Anticoagulants: No Patient History Medical History Abscess or cellulitis of foot Neuropathy Social History household members: children Smoking Status: Never smoker alcohol intake: current Smoking Status: Never smoker alcohol intake frequency: holidays/special occasions only Substance Use Type: marijuana Exam Initial Vital Signs Initial Vital Signs: Vital Signs Temperature 100.3 F H 04/13/21 20:19 Pulse Rate 89 04/13/21 20:19 Respiratory Rate 18 04/13/21 20:19 Blood Pressure 168/82 H 04/13/21 20:19 Pulse Oximetry 96 04/13/21 20:19 HENMT Head: normal to inspection and normocephalic Resp Effort & Inspection: normal respiratory effort Cardio Rate: regular rate Pulses: dorsalis pedis present bilaterally Skin Other: Small amount of redness on the medial aspect of the left foot where he had his prior infection. There is some peeling of the skin. It appears well. Neuro Other: Decreased sensation to left lower extremity this is unchanged Extrem Other: Bilateral lower extremities are swollen with right being slightly greater than the left. Psych Appearance: grossly normal and well kempt Course Orders Ordered: ED Orders 04/13/21 20:23 US periph venous low extrem rt Stat Vital Signs Vital signs: Vital Signs - 8 hr 04/13/21 20:19 04/13/21 23:14 Temperature 100.3 F H Pulse Rate 89 78 Respiratory Rate 18 18 Blood Pressure 168/82 H 143/78 H Pulse Oximetry 96 94 MDM - Recheck/Abnormal Lab/Rx Imaging Data US - DVT: Radiologist's Impression: [address] [address] Ultrasound Report Signed Patient: Preet Garrison MR#: [id number] : 1955 Acct:[id number] Age/Sex: 65 / M Date of Service: 04/13/21 Loc: ED Accession Number: [id number] ?? Procedure: US periph venous low extrem rt Ordering Provider: Jossue Schwab D.O. PROCEDURE:? US PERIPH VENOUS LOW EXTREM RT ? INDICATIONS:? EVAL FOR DVT ? TECHNIQUE:? Real-time imaging, as well as color and pulse Doppler interrogation, were performed of the lower extremity deep veins from the inguinal ligament to the popliteal fossa.? ? COMPARISON:? None. ? FINDINGS:? The common femoral, femoral and popliteal veins are normally compressible, and free of intraluminal thrombus.? Color and pulse Doppler demonstrate normal phasic intraluminal flow.? There is normal augmentation response to distal compression maneuver. ? ? IMPRESSION:? No DVT in the right lower extremity. ? ? Dictated by: Santiago Shi M.D. on 04/13/2021 at 22:55 ? ? Approved by: Santiago Shi M.D. on 04/13/2021 at 22:55?? MDM Narrative Medical decision making narrative: Patient reports that he had an elevated D-dimer that was ordered as an outpatient. This is not available for my review however he does have right lower extremity swelling. The subsequent ultrasound shows no signs of a blood clot. The infection in his left foot is improving per his report. His right foot is somewhat red and tender to the touch however I am not convinced that this is cellulitis. He is currently on antibiotics that would be appropriate for cellulitis. I feel that holding on labs are appropriate for now. An eleva tion in white blood cell count could very well be because of the known infection in his left foot. He has no change in his neurologic status. Vascularly intact. Will hold on further workup for now and have patient return if his symptoms worsen and also continue his home antibiotics and follow-up with his primary doctor. He did expressed understanding and agreement this plan. Discharge Plan Departure Patient Disposition: Home Clinical Impression: Edema Instructions: Edema (Alternative Therapy), Edema Activity Restrictions/Additional Instructions: There is no signs of any blood clots your lower extremity. Continue take the antibiotics as directed. Contact her primary doctor for follow-up and return to the emergency department for any new or worsening symptoms Prescriptions: No Action atorvastatin 40 mg tablet 40 mg PO BEDTIME 0RF Label Comments: Take 1 tablet by mouth once a day for cholesterol control methocarbamol 500 mg tablet 500 mg PO TID 0RF Label Comments: Take 1-2 tablet by mouth four times a day as needed for pain or muscle spasm amlodipine 5 mg tablet 5 mg PO DAILY 0RF tamsulosin [Flomax] 0.4 mg capsule 0.8 mg PO BEDTIME 0RF Label Comments: Take 2 capsule by mouth at bedtime to improve voiding metoprolol tartrate 50 mg tablet 50 mg PO BID 0RF fluticasone propion-salmeterol 113-14 mcg/actuation aerosol powdr breath acti vated 1 inh INHALATION BID 0RF gabapentin 600 mg tablet 1,200 mg PO TID 0RF sulfamethoxazole-trimethoprim [Bactrim DS] 800-160 mg tablet 1 tab PO BID Qty: 14 0RF Referrals: Latha Waters DO [Primary Care Provider] -
--- NOTE | 2021-04-13 20:23 | DI.US.S_ITS ---
PROCEDURE: US PERIPH VENOUS LOW EXTREM RT INDICATIONS: EVAL FOR DVT TECHNIQUE: Real-time imaging, as well as color and pulse Doppler interrogation, were performed of the lower extremity deep veins from the inguinal ligament to the popliteal fossa. COMPARISON: None. FINDINGS: The common femoral, femoral and popliteal veins are normally compressible, and free of intraluminal thrombus. Color and pulse Doppler demonstrate normal phasic intraluminal flow. There is normal augmentation response to distal compression maneuver. IMPRESSION: No DVT in the right lower extremity. Dictated by: Santiago Shi M.D. on 04/13/2021 at 22:55 Approved by: Santiago Shi M.D. on 04/13/2021 at 22:55
--- NOTE | 2021-04-13 21:21 | PC.NURSE ---
Pt family member reports ddimer drawn OP was 3.1mcg/ml, Dr. Schwab notified.
--- NOTE | 2021-04-13 22:34 | PC.NURSE ---
Pt and family member states desire to leave, educated on pending ultrasound results. Pt family member reports concern about right lower extremity redness and warmth, Dr. Schwab aware, pt currently on antibiotics for left lower extremity.
[2021-04-13 23:14] VITALS: BP 143/78; PULSE 78; RESP 18; O2SAT 94
== END 2021-04-13 23:14 | disposition home or self-care (01) ==
PROVIDERS: Emergency Provider Emergency Medicine; PCP Family Medicine
DX: R60.9 Edema, unspecified (principal)
CPT/HCPCS: 93971; 99283; 99284